=== PATIENT | female | born 2005 | race Hispanic/Latino ===

== ENCOUNTER → 2025-02-22 09:06 | Outpatient (REF) | payer OTHER, SELFPAY ==
[2025-02-22 09:37] LABS: % Basophils 0.5 % (0-2); % Eosinophils 4.5 % (0-6); % Immature Granulocytes 0.4 % (0-0.5); % Lymphocytes 17.9 % (20.5-51.1); % Monocytes 4.7 % (1.7-9.3); Absolute Basophils 0.1 10^3/uL (0-0.2); Absolute Eosinophils 0.5 10^3/uL (0-0.7); Absolute Monocytes 0.5 10^3/uL (0.1-0.6); Absolute Neutrophils 7.9 10^3/uL (1.4-6.5); Hematocrit 40.7 % (37.0-47.0); Hemoglobin 13.5 g/dL (12.0-16.0); Mean Corp Hgb Conc. 33.2 g/dL (33.0-37.0); Mean Corpuscular Hgb 28.8 pg (27.0-31.0); Mean Corpuscular Volume 86.8 fL (81.0-99.0); Mean Platelet Volume 9.1 fL (7.4-10.4); Nucleated Red Blood Cells % 0 %; Platelet Count 417 10^3/uL (130-400); Red Blood Cell Count 4.69 10^6/uL (4.20-5.40); White Blood Cell Count 10.9 10^3/uL (4.8-10.8)
[2025-02-22 09:57] LABS: HCG, Serum Qualitative Screen Negative
[2025-02-22 10:18] LABS: ALT (SGPT) 37 U/L (0-35); AST (SGOT) 27 U/L (14-36); Albumin 4.4 g/dl (3.5-5.0); Alkaline Phosphatase 129 U/L (38-126); Blood Urea Nitrogen 11 mg/dl (7-17); Calcium 9.6 mg/dl (8.4-10.2); Carbon Dioxide 23 mmol/L (22-30); Chloride 108 mmol/L (98-107); Glucose 91 mg/dl (70-99); Potassium 4.3 mmol/L (3.5-5.1); Sodium 142 mmol/L (135-145); Total Bilirubin 0.9 mg/dl (0.2-1.3); Total Protein 7.1 g/dl (6.3-8.2); eGFR > 60.00
[2025-02-22 11:56] LABS: Glycohemoglobin (HgbA1c) 5.3 % (4.0-5.6)
[2025-02-22 17:19] LABS: TSH Reflex To Free T4 2.19 uIU/ml (0.47-4.68)
[2025-02-22 17:26] LABS: Cortisol, Random 8.2 ug/dl
== END ==
LOC: REG 09:06
PROVIDERS: ATTENDING PHYSICIAN Family Medicine
DX: R63.5 Abnormal weight gain (principal); L90.6 Striae atrophicae; N91.2 Amenorrhea, unspecified
CPT/HCPCS: 36415; 80053; 82533; 83036; 84443; 84703; 85025

== ENCOUNTER 2025-03-30 13:35 | Emergency (ER) | payer OTHER, SELFPAY ==
[2025-03-30 13:40] VITALS: BP 118/93
[2025-03-30 14:05] LABS: % Basophils 0.7 % (0-2); % Eosinophils 3.7 % (0-6); % Immature Granulocytes 0.4 % (0-0.5); % Monocytes 4.4 % (1.7-9.3); % Neutrophils 66.8 % (42.2-75.2); Absolute Basophils 0.1 10^3/uL (0-0.2); Absolute Eosinophils 0.4 10^3/uL (0-0.7); Absolute Lymphocytes 2.4 10^3/uL (1.2-3.4); Absolute Monocytes 0.4 10^3/uL (0.1-0.6); Absolute Neutrophils 6.6 10^3/uL (1.4-6.5); Hemoglobin 14.2 g/dL (12.0-16.0); Mean Corp Hgb Conc. 33.8 g/dL (33.0-37.0); Mean Corpuscular Volume 85.9 fL (81.0-99.0); Mean Platelet Volume 8.8 fL (7.4-10.4); Nucleated Red Blood Cells % 0 %; Platelet Count 494 10^3/uL (130-400); Red Blood Cell Count 4.89 10^6/uL (4.20-5.40); Red Cell Dist. Width 13.4 % (11.5-14.5); White Blood Cell Count 9.9 10^3/uL (4.8-10.8)
[2025-03-30 14:28] LABS: HCG, Serum Qualitative Screen Negative
[2025-03-30 14:45] LABS: ALT (SGPT) 36 U/L (0-35); AST (SGOT) 23 U/L (14-36); Albumin 4.4 g/dl (3.5-5.0); Alkaline Phosphatase 132 U/L (38-126); Blood Urea Nitrogen 10 mg/dl (7-17); Carbon Dioxide 21 mmol/L (22-30); Chloride 112 mmol/L (98-107); Glucose 91 mg/dl (70-99); Potassium 4.7 mmol/L (3.5-5.1); Sodium 142 mmol/L (135-145); Total Bilirubin 0.4 mg/dl (0.2-1.3); Total Protein 7.7 g/dl (6.3-8.2); eGFR > 60.00
--- NOTE | 2025-03-30 14:53 | ED.GENMED ---
History of Present Illness
General
Chief Complaint: Vaginal Bleeding
Source: patient and family
Exam Limitations: none
Time Seen by Provider: 03/30/25 14:25
History of Present Illness
History of Present Illness:
Note patient is primarily Azeri-speaking however elects to have friend of family member who is bedside service rewriter. This patient is a 19-year-old female, G0, P0, who states that her last menstrual period was in mid November. She worried
if she was so she took an hCG test at home which was faintly positive. She went to the clinic at [place] and was noted to be negative. She has not taken a test since that time. She notes a menstrual cycle in the end of
November. She has not had any vaginal bleeding/menstruation since then. she developed lower abdominal cramping, associated with increasing in discomfort yesterday. Today, she passed a small amount of blood associated what looks like
tissue. She has minimal bleeding following this. She denies any other complaints such as fever, chills, chest pain, shortness of breath, back pain, passing clots, or other complaints. Note patient is on the control pill and states she is
taking the placebo for the last 6 days.
Past History
Past History
ED Past Medical History: None
ED Past Surgical History: None
Social History
Tobacco: Non-smoker
Alcohol: None
Drug: None
Personal:
Living: with family
Phy Exam
Physical Exam
Physical Exam:
GENERAL: Alert , in no apparent distress
EYE: pupils equal and reactive
NECK: Supple, no significant adenopathy.
ENT: o/p clr, mmm.
CARDIAC: Regular rate and rhythm .
LUNGS: Clear breath sounds bilaterally, no acute respiratory distress, no wheezes/rales/rhonchi
ABDOMEN: Soft, without focal tenderness, no r/g, no cvat
NEUROLOGICAL: Alert and oriented, no focal neuro deficits
SKIN: Warm and dry, skin intact.
MUSCULOSKELETAL: No edema, well perfused.
PSYCH: Normal and appropriate interaction.
Course
Orders/Labs/Results
Orders:
Orders
03/30/25 13:49
Test Result ONCE
03/30/25 13:54
Complete Blood Count/With Diff Urgent
Comprehensive Metabolic Panel Urgent
HCG, Serum Qualitative Screen Urgent
03/30/25 14:55
0.9% Sodium Chloride 1000 ml [Nss] 1,000 ml IV BOLUS
US Pelvis Only (non-obstetric) Urgent
Reason For Exam: vag bleeding
03/30/25 15:11
Blood Group&Type Urgent
03/30/25 15:27
ABO2 Urgent
BBK Wristband Number:
Associate notified that ABO2 has been ordered: [id number]
Date: 03/30/25
Time: 15:21
Manager Requirements ID: [id number]
Abnormal Lab Results
03/30/25
13:54
Plt Count 494 H 10^3/uL
(130-400)
Absolute Neuts (auto) 6.6 H 10^3/uL
(1.4-6.5)
Chloride 112 H mmol/L
(98-107)
Carbon Dioxide 21 L mmol/L
(22-30)
ALT 36 H U/L
(0-35)
Alkaline Phosphatase 132 H U/L
(38-126)
03/30/25 13:54
03/30/25 13:54
Vital Signs
Initial and Last Documented VS:
Initial Vital Signs
Temp Pulse Resp BP Pulse Ox
98.8 F 102 22 118/93 97
03/30/25 13:40 03/30/25 13:40 03/30/25 13:40 03/30/25 13:40 03/30/25 13:40
Last Documented Vital Signs
Temp Pulse Resp BP Pulse Ox
98.8 F 84 18 133/73 100
03/30/25 13:40 03/30/25 17:02 03/30/25 17:02 03/30/25 15:10 03/30/25 17:15
*Critical Care Note
Total Time (30-74mins, 75-104mins- exclusive of procedures): Not Applicable
Update Note
Update Note:
Patient presents to the Emergency Department with ____vaginal bleeding/tissue
Number and Complexity of Problems Addressed at the Encounter
� Chronic conditions affecting care:
� Acute Exacerbation and/or Progression of Chronic Illness:
� Differential Diagnosis includes: Threatened AB, normal , menstruation, dysfunctional uterine bleeding, etc. etc.
Amount and/or Complexity of Data to be Reviewed and Analyzed
� I performed an independent evaluation of and my interpretation is:
EKG:
CT:
Xrays:
Laboratory Studies:wnl,rh + hcg neg
Other:us nad
� Review of other/old records reveals:
� Clinical information was obtained by an independent historian: Family/rewriter who are bedside
� Prescriptions/Medications Considered but not given:
� Further testing considered but not performed:
Risk of Complications and/or Morbidity or Mortality of Patient Management
� Social determinants of health affecting care:
� Discussion with other providers (PCP, Hospitalists, Consultants, etc):
� Escalation of care including admission/observation vs risk of discharge considered: hCG negative, ultrasound unremarkable, patient with minimal bleeding. Will refer to [facility] for close follow-up.
Discharge instructions results, etc. discussed with patient via rewriter line as the family member/friend that was serving as rewriter was no longer at bedside. All questions answered. Patient very comfortable with plan for discharge and close
follow-up.
ED Attending Note
-
Portions of this chart may have been created with voice recognition software.� Occasional wrong word or��sound alike� substitutions may have occurred due to the inherent limitations of voice recognition software.
Discharge Plan
Departure
Patient Disposition: Home (Routine Discharge)
Date of Disposition: 03/30/25
Time of Disposition: 17:19
Patient with high blood pressure during this ER visit?: Yes
Condition: Good
Discharge Problem:
Vaginal bleeding
Instructions: Bleeding between periods, BLOOD PRESSURE
Referrals:
UNKNOWN - PT DOES,NOT KNOW [Family Provider]
Activity Restrictions/Additional Instructions:
PLEASE FOLLOW-UP WITH YOUR [facility] DOCTOR THIS WEEK! IF YOU DEVELOP HEAVY BLEEDING, DIZZINESS, PERSISTENT ABDOMINAL DISCOMFORT, FEVER, OR OTHER WORRISOME SIGNS, PLEASE RETURN TO THE ER IMMEDIATELY!
Interventions
Interventions:
*Risk Screen - Suicide Last Done: 03/30/25 13:40
*General Assessment Last Done: 03/30/25 13:40
*Neglect/Abuse Screening Last Done: 03/30/25 13:40
*ED- Fall Risk Assessment Last Done: 03/30/25 14:25
*ED COVID-19 Vaccine History Last Done: 03/30/25 14:25
ED-Female Genitourinary Assessment Last Done: 03/30/25 14:30
Discharge Date and Time
Print Language: THAI
[2025-03-30] MEDS: NSS 1000 IV (14:59)
[2025-03-30 15:10] VITALS: BP 133/73
[2025-03-30 17:39] VITALS: BP 110/92
== END 2025-03-30 17:52 | disposition home or self-care (01) ==
LOC: EMR 13:35
PROVIDERS: Emergency Medicine; EMERGENCY PHYSICIAN Emergency Medicine
DX: N93.9 Abnormal uterine and vaginal bleeding, unspecified (principal); R10.30 Lower abdominal pain, unspecified; R03.0 Elevated blood-pressure reading, without diagnosis of hypertension
CPT/HCPCS: 99284; 96360; 76856; 80053; 84703; 85025; 86900; 86901

== ENCOUNTER → 2025-05-27 11:12 | Outpatient (REF) | payer OTHER, SELFPAY ==
[2025-05-27 13:21] LABS: Cortisol, Random 1.0 ug/dl
== END ==
LOC: CLINIC 11:12
PROVIDERS: ATTENDING PHYSICIAN Family Medicine; OTHER PHYSICIAN Physician Assistant Medical
DX: R63.5 Abnormal weight gain (principal); L90.6 Striae atrophicae; N91.2 Amenorrhea, unspecified; Z01.419 Encounter for gynecological examination (general) (routine) without abnormal findings
CPT/HCPCS: 36415; 82533; 87624

== ENCOUNTER 2025-07-31 19:19 | Emergency (ER) | payer SELFPAY ==
[2025-07-31 19:23] VITALS: BP 110/80
[2025-07-31 19:40] LABS: Hematocrit 39.6 % (37.0-47.0); Hemoglobin 13.0 g/dL (12.0-16.0); Mean Corp Hgb Conc. 32.8 g/dL (33.0-37.0); Mean Corpuscular Volume 87.0 fL (81.0-99.0); Nucleated Red Blood Cells % 0 %; Platelet Count 487 10^3/uL (130-400); Red Cell Dist. Width 12.9 % (11.5-14.5)
[2025-07-31 19:55] LABS: HCG, Serum Qualitative Screen Negative
[2025-07-31 19:59] LABS: ALT (SGPT) 31 U/L (0-35); AST (SGOT) 22 U/L (14-36); Albumin 4.2 g/dl (3.5-5.0); Alkaline Phosphatase 146 U/L (38-126); Blood Urea Nitrogen 9 mg/dl (7-17); Calcium 9.1 mg/dl (8.4-10.2); Carbon Dioxide 25 mmol/L (22-30); Chloride 107 mmol/L (98-107); Glucose 77 mg/dl (70-99); Potassium 4.2 mmol/L (3.5-5.1); Sodium 137 mmol/L (135-145); Total Protein 7.1 g/dl (6.3-8.2); eGFR > 60.00
[2025-07-31 22:58] VITALS: BMI 36.4
[2025-07-31 23:00] VITALS: BP 121/83
[2025-08-01] VITALS: BP 122/110
--- NOTE | 2025-08-01 00:09 | ED.GENMED ---
History of Present Illness
General
Chief Complaint: Dizziness
Source: patient (Patient is [place] speaking host hostess WEB CONTENT COORDINATOR [id number])
Exam Limitations: none
Time Seen by Provider: 07/31/25 23:08
Nursing documentation reviewed up to this point in time: agreed with
History of Present Illness
History of Present Illness:
19-year-old female presenting to the emergency department with multiple concerns. She claims that over the past 2 to 3 weeks she has noticed intermittent room spinning dizziness seem to be worst with changes in positioning and movement. This has
been somewhat intermittent but more persistent over the past few days. She is also noted some vague headache described as diffuse achy. The headache is also intermittent and has not been persistent not worst of life not abrupt in onset. He also
claims have nausea without vomiting has had diffuse abdominal pain described as achy over the past 2 weeks as well. Denies specific chest pain shortness of breath fevers.
Past History
Past History
ED Past Medical History: None
ED Past Surgical History: None
Social History
Tobacco: Non-smoker
Alcohol: None
Drug: None
Personal:
Living: with family
Review of Systems
Review of Systems
Allergies reviewed?: Yes
All Other Systems: ROS reviewed and negative except as documented in HPI and ROS
Phy Exam
Physical Exam
Physical Exam:
GENERAL: Alert , in no apparent distress
EYE: pupils equal and reactive
NECK: Supple, no significant adenopathy.
ENT: o/p clr, mmm.
CARDIAC: Regular rate and rhythm .
LUNGS: Clear breath sounds bilaterally, no acute respiratory distress, no wheezes/rales/rhonchi
ABDOMEN: Vague abdominal pain throughout the abdomen no focal tenderness
NEUROLOGICAL: Alert and oriented, no focal neuro deficits moving all extremities normally
SKIN: Warm and dry, skin intact.
MUSCULOSKELETAL: No edema, well perfused.
PSYCH: Normal and appropriate interaction.
Course
Orders/Labs/Results
Orders:
Orders
07/31/25 19:23
Test Result ONCE
07/31/25 19:30
Complete Blood Count/With Diff Urgent
Comprehensive Metabolic Panel Urgent
HCG, Serum Qualitative Screen Urgent
07/31/25 23:48
EKG [Electrocardiogram (*1)] Urgent
Reason for Study: Vertigo / Dizzy
EKG- Treatment ONCE
Ketorolac [Toradol] 15 mg IV NOW STA
Metoclopramide [Reglan] 10 mg IV NOW STA
07/31/25 23:49
Meclizine [Antivert] 25 mg PO NOW STA
08/01/25
CT Abd/Pel (IV only)-DH only Urgent
Reason For Exam: diffuse abd pain
Abnormal Lab Results
07/31/25
19:30
WBC 13.0 H 10^3/uL
(4.8-10.8)
MCHC 32.8 L g/dL
(33.0-37.0)
Plt Count 487 H 10^3/uL
(130-400)
Abs Immat Gran (auto) 0.1 H 10^3/uL
(0-0.05)
Absolute Neuts (auto) 8.8 H 10^3/uL
(1.4-6.5)
Absolute Monos (auto) 0.7 H 10^3/uL
(0.1-0.6)
Creatinine 0.5 L mg/dL
(0.6-1.0)
Alkaline Phosphatase 146 H U/L
(38-126)
07/31/25 19:30
07/31/25 19:30
Vital Signs
Initial and Last Documented VS:
Initial Vital Signs
Temp Pulse Resp BP Pulse Ox
98.2 F 100 16 110/80 98
07/31/25 19:23 07/31/25 19:23 07/31/25 19:23 07/31/25 19:23 07/31/25 19:23
Last Documented Vital Signs
Temp Pulse Resp BP Pulse Ox
98.2 F 105 22 114/57 97
07/31/25 19:23 08/01/25 02:15 08/01/25 02:15 08/01/25 02:07 08/01/25 02:15
MDM/Problems Addressed
MDM/Problems Addressed:
19-year-old female presenting to the emergency department today with concerns of room spinning dizziness nausea abdominal pain headache over the past 2 weeks. On arrival vital signs normal patient in no obvious distress white count of 13 otherwise
labs unremarkable. He was given meclizine Reglan for the headache symptoms fully resolved after treatment CT scan of the abdomen without acute findings. No signs of emergent pathology advised for close outpatient follow-up. Return precautions
given.
*Pulse Oximetry
SaO2: 100
Oxygen Mode of Delivery: Room air
Patient hypoxic: no (97)
*Critical Care Note
Total Time (30-74mins, 75-104mins- exclusive of procedures): Not Applicable
ED Attending Note
-
Portions of this chart may have been created with voice recognition software.� Occasional wrong word or��sound alike� substitutions may have occurred due to the inherent limitations of voice recognition software.
Discharge Plan
Departure
Patient Disposition: Home (Routine Discharge)
Date of Disposition: 08/01/25
Time of Disposition: 02:48
Patient with high blood pressure during this ER visit?: No
Condition: Good
Covid-19: Not Applicable
Discharge Problem:
Abdominal pain, Headache, Dizziness
Instructions: Dizziness, Nonvertigo, (DC)
Referrals:
[facility] [Provider Group] - Follow up in 5-7 days
Abdirizak Razo MD [Family Provider]
Activity Restrictions/Additional Instructions:
You came to the emergency department today with concerns of abdominal pain headache dizziness. Please follow-up close with a primary care doctor. Here your workup was reassuring. Return for any worsening, new or concerning symptoms.
Interventions
Interventions:
*Risk Screen - Suicide Last Done: 07/31/25 19:23
*General Assessment Last Done: 07/31/25 19:23
*Neglect/Abuse Screening Last Done: 07/31/25 19:23
*ED- Fall Risk Assessment Last Done: 07/31/25 19:23
*ED COVID-19 Vaccine History Last Done: 07/31/25 19:23
*ED Influenza Vaccine History Last Done: 07/31/25 19:23
ED- Neurological Assessment Last Done: 07/31/25 23:19
ED Swallowing Screen Last Done: 08/01/25 00:00
Discharge Date and Time
Print Language: NORWEGIAN
[2025-08-01] MEDS: TORADOL 15 MG IV (00:12)
[2025-08-01] MEDS: ANTIVERT 25 MG PO (00:13)
[2025-08-01] MEDS: REGLAN 10 MG IV (00:13)
[2025-08-01 02:07] VITALS: BP 114/57
== END 2025-08-01 03:00 | disposition home or self-care (01) ==
LOC: EMR 19:19
PROVIDERS: Emergency Medicine; EMERGENCY PHYSICIAN Emergency Medicine; FAMILY PHYSICIAN Family Medicine
DX: R10.9 Unspecified abdominal pain (principal); R51.9 Headache, unspecified; R42 Dizziness and giddiness
CPT/HCPCS: 99284; 96374; 96375; 74177; 80053; 84703; 85025; 93005; Q9967